=== PATIENT | female | born 1975 | race Hispanic/Latino ===

== ENCOUNTER → 2024-02-04 08:43 | Outpatient (REF) | payer OTHER, SELFPAY ==
[2024-02-04 19:47] LABS: Urine Albumin Negative (Neg - Trace); Urine Bilirubin Negative (Negative); Urine Character Clear (Clear); Urine Color Yellow; Urine Glucose Negative (Negative); Urine Ketone Negative (Negative); Urine Leukocyte Negative (Negative); Urine Nitrite Negative (Negative); Urine Occult Blood Negative (Negative); Urine Urobilinogen Negative (Neg - 1+)
== END ==
LOC: CLINIC 08:43
PROVIDERS: ATTENDING PHYSICIAN Specialist
DX: N30.01 Acute cystitis with hematuria (principal)
CPT/HCPCS: 81003

== ENCOUNTER → 2024-02-04 09:06 | Outpatient (REF) | payer OTHER, SELFPAY ==
[2024-02-04 10:51] LABS: HDL Cholesterol 67 mg/dl; LDL Cholesterol, Calculated 128 mg/dl; Total Cholesterol 223 mg/dl (50-199); Triglyceride 140 mg/dl (10-149); Very Low Density Lipoprotein 28 mg/dl (0-30)
[2024-02-04 13:01] LABS: Glycohemoglobin (HgbA1c) 6.9 % (4.0-5.6)
== END ==
LOC: CLINIC 09:06
PROVIDERS: ATTENDING PHYSICIAN Internal Medicine
DX: E11.65 Type 2 diabetes mellitus with hyperglycemia (principal)
CPT/HCPCS: 36415; 80061; 83036

== ENCOUNTER → 2024-07-15 08:15 | Outpatient (REF) | payer OTHER, SELFPAY ==
[2024-07-15 09:15] LABS: HDL Cholesterol 53 mg/dl; LDL Cholesterol, Calculated 47 mg/dl; Total Cholesterol 120 mg/dl (50-199); Triglyceride 100 mg/dl (10-149); Very Low Density Lipoprotein 20 mg/dl (0-30)
[2024-07-15 10:24] LABS: Glycohemoglobin (HgbA1c) 9.4 % (4.0-5.6)
== END ==
LOC: REG 08:15
PROVIDERS: ATTENDING PHYSICIAN Internal Medicine
DX: E11.65 Type 2 diabetes mellitus with hyperglycemia (principal); H93.232 Hyperacusis, left ear
CPT/HCPCS: 36415; 80061; 83036

== ENCOUNTER 2024-08-03 06:05 | Day surgery (SDC) | payer OTHER, SELFPAY ==
--- NOTE | 2024-07-28 11:32 | PTCARENOTE ---
Patients 07/15- A1C- 9.4- Oriana @ Dr. Leyva office notified.
[2024-08-03] VITALS (8 sets, daily range): BP systolic 93–111; BP diastolic 53–66; BMI 33.2
[2024-08-03 06:39] LABS: Glucose - Point of Care 165 mg/dl (70-99)
[2024-08-03] MEDS: NORMOSOL-R/PLASMALYTE-A 1000 IV (06:55)
[2024-08-03] MEDS: Pyridium 200 MG PO (06:55)
[2024-08-03 09:06] LABS: Glucose - Point of Care 142 mg/dl (70-99)
== END 2024-08-03 09:30 | disposition home or self-care (01) ==
LOC: SDS 06:05
PROVIDERS: ATTENDING PHYSICIAN Specialist
DX: N30.80 Other cystitis without hematuria (principal)
CPT/HCPCS: 52224; 88307; 82962

== ENCOUNTER → 2024-11-18 09:44 | Outpatient (REF) | payer OTHER, SELFPAY | LOC: CLINIC 09:44 | PROVIDERS: ATTENDING PHYSICIAN Internal Medicine | DX: E11.65 Type 2 diabetes mellitus with hyperglycemia (principal) | CPT/HCPCS: 36415; 83036 ==

== ENCOUNTER → 2025-03-17 08:08 | Outpatient (REF) | payer OTHER, SELFPAY ==
[2025-03-17 08:56] LABS: Urine Albumin Negative (Neg - Trace); Urine Bilirubin Negative (Negative); Urine Character Clear (Clear); Urine Color Yellow; Urine Glucose Negative (Negative); Urine Ketone Negative (Negative); Urine Leukocyte Negative (Negative); Urine Nitrite Negative (Negative); Urine Occult Blood Negative (Negative); Urine Urobilinogen Negative (Neg - 1+)
[2025-03-17 09:02] LABS: % Basophils 1.2 % (0-2); % Eosinophils 7.1 % (0-6); % Immature Granulocytes 0.4 % (0-0.5); % Lymphocytes 32.8 % (20.5-51.1); % Monocytes 6.1 % (1.7-9.3); % Neutrophils 52.4 % (42.2-75.2); Absolute Basophils 0.1 10^3/uL (0-0.2); Absolute Eosinophils 0.4 10^3/uL (0-0.7); Absolute Lymphocytes 1.8 10^3/uL (1.2-3.4); Absolute Monocytes 0.3 10^3/uL (0.1-0.6); Absolute Neutrophils 2.9 10^3/uL (1.4-6.5); Hematocrit 37.9 % (37.0-47.0); Hemoglobin 13.2 g/dL (12.0-16.0); Mean Corp Hgb Conc. 34.8 g/dL (33.0-37.0); Mean Corpuscular Hgb 30.1 pg (27.0-31.0); Mean Corpuscular Volume 86.5 fL (81.0-99.0); Mean Platelet Volume 13.6 fL (7.4-10.4); Nucleated Red Blood Cells % 0 %; Platelet Count 130 10^3/uL (130-400); Red Blood Cell Count 4.38 10^6/uL (4.20-5.40); Red Cell Dist. Width 12.9 % (11.5-14.5); Reticulocyte Count 2.6 % (0.4-2.8); White Blood Cell Count 5.6 10^3/uL (4.8-10.8)
[2025-03-17 09:14] LABS: Glycohemoglobin (HgbA1c) 8.1 % (4.0-5.6)
[2025-03-17 09:22] LABS: ALT (SGPT) 64 U/L (0-35); AST (SGOT) 85 U/L (14-36); Albumin 4.3 g/dl (3.5-5.0); Alkaline Phosphatase 82 U/L (38-126); Blood Urea Nitrogen 6 mg/dl (7-17); Calcium 9.1 mg/dl (8.4-10.2); Carbon Dioxide 26 mmol/L (22-30); Chloride 109 mmol/L (98-107); Glucose 136 mg/dl (70-99); Potassium 4.5 mmol/L (3.5-5.1); Sodium 141 mmol/L (135-145); Total Bilirubin 0.7 mg/dl (0.2-1.3); Total Protein 7.4 g/dl (6.3-8.2); eGFR > 60.00
== END ==
LOC: CLINIC 08:08
PROVIDERS: ATTENDING PHYSICIAN Internal Medicine
DX: E11.65 Type 2 diabetes mellitus with hyperglycemia (principal)
CPT/HCPCS: 36415; 80053; 81003; 82043; 83036; 85025; 85045

== ENCOUNTER → 2025-06-16 08:05 | Outpatient (REF) | payer OTHER, SELFPAY ==
[2025-06-16 11:11] LABS: Glycohemoglobin (HgbA1c) 8.2 % (4.0-5.6)
== END ==
LOC: CLINIC 08:05
PROVIDERS: ATTENDING PHYSICIAN Internal Medicine
DX: E11.65 Type 2 diabetes mellitus with hyperglycemia (principal)
CPT/HCPCS: 36415; 83036

== ENCOUNTER → 2025-10-06 08:11 | Outpatient (REF) | payer OTHER, SELFPAY ==
[2025-10-06 11:03] LABS: Glycohemoglobin (HgbA1c) 7.1 % (4.0-5.9)
== END ==
LOC: CLINIC 08:11
PROVIDERS: ATTENDING PHYSICIAN Internal Medicine
DX: E11.65 Type 2 diabetes mellitus with hyperglycemia (principal)
CPT/HCPCS: 36415; 83036